=== PATIENT | male | born 1975 | race African-American/Black ===

== ENCOUNTER 2019-12-29 09:18 | Emergency (ER) | payer OTHER ==
[~2019-12-29] VITALS: Ht 177.8 cm; Wt 95.3 kg
[2019-12-29 09:43] LABS: ABSOLUTE NEUTROPHILS 10.2 thou/uL (1.4-8.2); BASOPHILS 0.4 % (0.0-2.0); EOSINOPHILS 0.1 % (0.0-3.0); HEMATOCRIT 44.3 % (42.0-52.0); HEMOGLOBIN 14.8 gm/dL (14.0-18.0); LYMPHOCYTES 9.6 % (24.0-44.0); MCH 28.8 pg (26.0-34.0); MCHC 33.5 g/dL (28.0-37.0); MCV 85.9 fL (80.0-100.0); MONOCYTES 4.8 % (1.0-8.0); POLYS 85.1 % (36.0-66.0); RBC 5.16 mil/uL (4.50-6.00); RDW 13.1 % (10.5-14.5); WBC 13.2 thou/uL (4.0-11.0)
[2019-12-29 09:50] LABS: ANION GAP 15 mmol/L (7-16); BUN 16 mg/dL (7-18); CALCIUM 10.3 mg/dL (8.5-10.1); CHLORIDE 91 mmol/L (98-107); CO2 24 mmol/L (21-32); CREATININE 1.5 mg/dL (0.7-1.3); GLUCOSE 320 mg/dL (74-106); POTASSIUM 3.7 mmol/L (3.5-5.1); SODIUM 130 mmol/L (136-145)
[2019-12-29 10:00] LABS: PLATELET COUNT 221 thou/uL (150-400); PLATELET ESTIMATE NORMAL
[2019-12-29 10:01] LABS: ALBUMIN 4.2 g/dL (3.4-5.0); LIPASE 141 U/L (73-393); SGOT 26 U/L (15-37); SGPT 16 U/L (30-65); TOTAL BILIRUBIN 1.1 mg/dL (<0.1-1.0); TOTAL PROTEIN 8.7 g/dL (6.4-8.2); TROPONIN-I <0.06 ng/mL (<0.06)
[2019-12-29 10:27] LABS: URINE BILIRUBIN NEGATIVE (Negative); URINE BLOOD TRACE (Negative); URINE CLARITY CLEAR; URINE COLOR YELLOW; URINE GLUCOSE-RANDOM* 2+ (Negative); URINE KETONES 3+ (Negative); URINE LEUKOCYTES-REFLEX NEGATIVE (Negative); URINE NITRITE-REFLEX NEGATIVE (Negative); URINE PROTEIN (DIPSTICK) TRACE (Negative)
--- NOTE | 2019-12-29 12:55 | EKG ---
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1975 Requested By: Bernardino Rojas Order Number: [id number] MD: Triston Mccauley Measurements Intervals [place] Rate: 114 P: 70 NM: 157 QRS: 47 QRSD: 91 T: 45 QT: 347 QTc: 478 Interpretive Statements Sinus tachycardia ST elev, probable normal early repol pattern Borderline prolonged QT interval No previous ECG available for comparison Electronically Signed On 12-29-2019 12:53:58 CORD TIRE [employer]ILDER by Triston Mccauley [email or web address] <ELECTRONICALLY SIGNED> By: Triston Mccauley MD 12/29/19 1253 0937 0937 Triston Mccauley MD /EPI
[2019-12-29] MEDS ORDERED: CATAPRES0.1 MG PO (13:34)
[2019-12-29] MEDS ORDERED: INSULIN SYRING1 EA11 SUBQ (13:34)
[2019-12-29] MEDS ORDERED: ONDANSETRON ODT8 MG PO (13:34)
[2019-12-29] MEDS ORDERED: TRAMADOL 50 MG50 MG PO (13:34)
[2019-12-29 13:45] VITALS: BP 151/92
[2019-12-30] MEDS ORDERED: REGLAN 10 MG TA10 MG PO (18:14)
== END 2019-12-29 13:45 | disposition home or self-care (01) ==
LOC: ER 09:18 → EDBD 09:18 → ER 13:45
PROVIDERS: Emergency Medicine
DX: K31.84 Gastroparesis (principal); I10 Essential (primary) hypertension; I11.9 Hypertensive heart disease without heart failure; R10.9 Unspecified abdominal pain; R03.0 Elevated blood-pressure reading, without diagnosis of hypertension; F17.210 Nicotine dependence, cigarettes, uncomplicated

== ENCOUNTER 2019-12-30 12:08 | Emergency (ER) | payer OTHER ==
[~2019-12-30] VITALS: Ht 182.9 cm; Wt 88.5 kg
[~2019-12-30 12:08] MED LIST: CATAPRES0.1 MG PO; INSULIN SYRING1 EA11 SUBQ; ONDANSETRON ODT8 MG PO; TRAMADOL 50 MG50 MG PO
[2019-12-30 12:27] LABS: ABSOLUTE NEUTROPHILS 8.3 thou/uL (1.4-8.2); BASOPHILS 0.3 % (0.0-2.0); HEMATOCRIT 47.6 % (42.0-52.0); HEMOGLOBIN 16.2 gm/dL (14.0-18.0); LYMPHOCYTES 17.8 % (24.0-44.0); MCH 29.2 pg (26.0-34.0); MCHC 34.1 g/dL (28.0-37.0); MCV 85.7 fL (80.0-100.0); MONOCYTES 5.1 % (1.0-8.0); POLYS 76.8 % (36.0-66.0); RBC 5.55 mil/uL (4.50-6.00); RDW 13.3 % (10.5-14.5); WBC 10.8 thou/uL (4.0-11.0)
[2019-12-30 12:28] LABS: PLATELET COUNT 302 thou/uL (150-400)
[2019-12-30 12:34] LABS: CALCIUM 10.5 mg/dL (8.5-10.1); CREATININE 1.5 mg/dL (0.7-1.3); POTASSIUM 3.7 mmol/L (3.5-5.1)
[2019-12-30 12:40] LABS: ALBUMIN 4.3 g/dL (3.4-5.0); TOTAL BILIRUBIN 1.1 mg/dL (<0.1-1.0); TOTAL PROTEIN 9.2 g/dL (6.4-8.2)
[2019-12-30 12:44] LABS: BE(vivo) 4.3 mmol/L (-2 to +3); HCO3 22.7 mmol/L (22.0-26.0); PCO2 VENOUS 21.2 mmHg (41.0-51.0); PO2 VENOUS 69.7 mmHg (35.0-45.0)
[2019-12-30] MEDS ORDERED: REGLAN 10 MG TA10 MG PO (18:14)
[2019-12-30 19:57] LABS: URINE BILIRUBIN NEGATIVE (Negative); URINE BLOOD NEGATIVE (Negative); URINE CLARITY CLEAR; URINE COLOR YELLOW; URINE GLUCOSE-RANDOM* 2+ (Negative); URINE KETONES 1+ (Negative); URINE LEUKOCYTES-REFLEX NEGATIVE (Negative); URINE NITRITE-REFLEX NEGATIVE (Negative); URINE PROTEIN (DIPSTICK) 1+ (Negative)
[2019-12-30 20:05] LABS: AMORPHOUS PHOSPHATES Moderate /LPF (None Seen); AMP/METHAMP Negative (Negative); BARBITURATES Negative (Negative); BENZODIAZEPINES Negative (Negative); COCAINE POSITIVE (Negative); METHADONE Negative (Negative); OPIATES Negative (Negative); PCP Negative (Negative); URINE RBC None Seen /HPF (0-2)
[2019-12-30 20:06] LABS: BACTERIA-REFLEX 1-9 Few /HPF (None Seen); CASTS None Seen /LPF (None Seen); SQUAMOUS 0-3 Few /LPF (0-3); URINE WBC-REFLEX None Seen /HPF (0-5)
[2019-12-30 21:21] VITALS: BP 175/83
[2019-12-31 06:06] LABS: HBsAG-EMPLOYEE EXPOSURE Negative (Negative); HCV AB-EMPLOYEE EXPOSURE <0.1 (0.0-0.9)
--- NOTE | 2020-01-04 15:34 | EKG ---
[facility] [place] [address] ELECTROCARDIOGRAM REPORT Name: TERENCE PACHECO Room #: DEP [facility]#: [id number] Admission: 12/30/19 Attend Phys: Discharge: 12/30/19 Date of : 73 Report #: [id number] THIS REPORT FOR: cc: FAM - Family physician unknown FAM - Family physician unknown Omar Navarrete MD [facility] THIS REPORT FOR: //name// [facility] ED Test Date: 2019-12-30 Test Time: 12:25:29 Pat Name: TERENCE PACHECO Department: Room: Gender: Client Hr Manager: : 1975 Requested By: Ubaldo Medina Order Number: [id number] MD: Omar Navarrete Measurements Intervals [place] Rate: 106 P: 58 TN: 152 QRS: 42 QRSD: 92 T: 34 QT: 353 QTc: 469 Interpretive Statements Sinus tachycardia Poor R wave progression Compared to ECG 12/29/2019 09:37:43 No significant change was found Electronically Signed On 12-31-2019 16:57:10 EDGE GLUER by Omar Navarrete [email or web address] <ELECTRONICALLY SIGNED> By: Omar Navarrete MD, FAC 12/31/19 1657 1225 1225 Omar Navarrete MD, [facility] /EPI
== END 2019-12-30 21:25 | disposition home or self-care (01) ==
LOC: ER 12:08
PROVIDERS: Emergency Medicine
DX: R11.15 Cyclical vomiting syndrome unrelated to migraine (principal); R11.2 Nausea with vomiting, unspecified; I10 Essential (primary) hypertension; E11.9 Type 2 diabetes mellitus without complications; J45.909 Unspecified asthma, uncomplicated; F17.210 Nicotine dependence, cigarettes, uncomplicated; Z79.899 Other long term (current) drug therapy

== ENCOUNTER 2020-03-09 12:46 | Emergency (ER) | payer OTHER ==
[~2020-03-09] VITALS: Ht 177.8 cm; Wt 95.3 kg
[~2020-03-09 12:46] MED LIST changes: +REGLAN 10 MG TA10 MG PO
[2020-03-09] MEDS ORDERED: ZESTRIL10 MG PO (13:24)
[2020-03-09] MEDS ORDERED: REGLAN 10 MG TA10 MG PO (13:25)
[2020-03-09 13:45] LABS: BASOPHILS 0.7 % (0.0-2.0); EOSINOPHILS 0.1 % (0.0-3.0); HEMOGLOBIN 14.3 gm/dL (14.0-18.0); LYMPHOCYTES 18.5 % (24.0-44.0); MCHC 34.1 g/dL (28.0-37.0); MCV 85.1 fL (80.0-100.0); MONOCYTES 8.5 % (1.0-8.0); PLATELET COUNT 252 thou/uL (150-400); POLYS 72.2 % (36.0-66.0); RBC 4.94 mil/uL (4.50-6.00); RDW 12.8 % (10.5-14.5); WBC 8.4 thou/uL (4.0-11.0)
[2020-03-09 13:50] LABS: CREATININE 1.2 mg/dL (0.7-1.3); POTASSIUM 3.4 mmol/L (3.5-5.1)
[2020-03-09 13:56] LABS: ALBUMIN 3.7 g/dL (3.4-5.0); TOTAL BILIRUBIN 1.1 mg/dL (<0.1-1.0); TOTAL PROTEIN 7.9 g/dL (6.4-8.2)
[2020-03-09 14:00] LABS: URINE BILIRUBIN NEGATIVE (Negative); URINE BLOOD TRACE (Negative); URINE CLARITY CLEAR; URINE COLOR YELLOW; URINE GLUCOSE-RANDOM* 2+ (Negative); URINE KETONES 1+ (Negative); URINE LEUKOCYTES-REFLEX NEGATIVE (Negative); URINE NITRITE-REFLEX NEGATIVE (Negative); URINE PROTEIN (DIPSTICK) TRACE (Negative); URINE SPECIFIC GRAVITY 1.015 (1.005-1.035)
[2020-03-09 16:10] VITALS: BP 162/101
== END 2020-03-09 16:31 | disposition left against medical advice (07) ==
LOC: ER 12:46
PROVIDERS: Physician Assistant
DX: E11.43 Type 2 diabetes mellitus with diabetic autonomic (poly)neuropathy (principal); K31.84 Gastroparesis; E11.65 Type 2 diabetes mellitus with hyperglycemia; R11.2 Nausea with vomiting, unspecified; I10 Essential (primary) hypertension; J45.909 Unspecified asthma, uncomplicated; F17.210 Nicotine dependence, cigarettes, uncomplicated; Z79.899 Other long term (current) drug therapy

== ENCOUNTER 2020-04-23 21:39 | Emergency (ER) | payer OTHER ==
[~2020-04-23] VITALS: Ht 175.3 cm; Wt 90.7 kg
[~2020-04-23 21:39] MED LIST changes: +ZESTRIL10 MG PO
[2020-04-23] MEDS ORDERED: AMLODIPINE BESY10 MG PO (21:48)
[2020-04-23] MEDS ORDERED: NEURONTIN 300M300 M2 PO (21:49)
[2020-04-23] MEDS ORDERED: LISINOPRIL20 MG PO (21:49)
[2020-04-23] MEDS ORDERED: LANTUS SOL100 UNIT/1 SUBQ (21:49)
[2020-04-23] MEDS ORDERED: HUMALOG KW100 UNIT/1 SUBQ (21:49)
[2020-04-23 22:19] LABS: ABSOLUTE NEUTROPHILS 9.6 thou/uL (1.4-8.2); BASOPHILS 0.3 % (0.0-2.0); HEMATOCRIT 43.3 % (42.0-52.0); HEMOGLOBIN 15.2 gm/dL (14.0-18.0); LYMPHOCYTES 5.9 % (24.0-44.0); MCH 29.6 pg (26.0-34.0); MCV 84.6 fL (80.0-100.0); MONOCYTES 2.2 % (1.0-8.0); PLATELET COUNT 258 thou/uL (150-400); POLYS 91.6 % (36.0-66.0); RBC 5.12 mil/uL (4.50-6.00); RDW 12.5 % (10.5-14.5); WBC 10.5 thou/uL (4.0-11.0)
[2020-04-23 22:31] LABS: ANION GAP 13 mmol/L (7-16); BUN 13 mg/dL (7-18); CALCIUM 9.6 mg/dL (8.5-10.1); CHLORIDE 92 mmol/L (98-107); CO2 25 mmol/L (21-32); CREATININE 1.2 mg/dL (0.7-1.3); GLUCOSE 338 mg/dL (74-106); SODIUM 130 mmol/L (136-145)
[2020-04-23 22:41] LABS: ALBUMIN 3.9 g/dL (3.4-5.0); LIPASE 201 U/L (73-393); SGOT 17 U/L (15-37); SGPT 27 U/L (30-65); TOTAL BILIRUBIN 0.9 mg/dL (0.2-1.0); TOTAL PROTEIN 8.3 g/dL (6.4-8.2); TROPONIN-I <0.06 ng/mL (<0.06)
[2020-04-23] MEDS ORDERED: PHENERGAN 25 MG25 MG PO (23:19)
[2020-04-23] MEDS ORDERED: PRILOSEC OTC20 MG PO (23:19)
[2020-04-23] MEDS ORDERED: TRAMADOL 50 MG50 MG PO (23:19)
[2020-04-23 23:33] VITALS: BP 157/90
--- NOTE | 2020-04-24 07:43 | EKG ---
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: : 1975 Requested By: Bernardino Rojas Order Number: [id number] MD: Omar Navarrete Measurements Intervals [place] Rate: 99 P: 49 [place]: 158 QRS: 33 QRSD: 89 T: 25 QT: 359 QTc: 461 Interpretive Statements Sinus rhythm Small inferior Q waves Poor R wave progression Compared to ECG 12/30/2019 12:25:29 No significant change was found Electronically Signed On 04-24-2020 7:42:46 CDT by Omar Navarrete [email or web address] <ELECTRONICALLY SIGNED> By: Omar Navarrete MD, FACC 04/24/20 0742 19 19 Omar Navarrete MD, [facility] /EPI
== END 2020-04-23 23:40 | disposition home or self-care (01) ==
LOC: ER 21:39
PROVIDERS: Emergency Medicine
DX: E11.43 Type 2 diabetes mellitus with diabetic autonomic (poly)neuropathy (principal); E11.65 Type 2 diabetes mellitus with hyperglycemia; K31.84 Gastroparesis; R11.2 Nausea with vomiting, unspecified; I10 Essential (primary) hypertension; J45.909 Unspecified asthma, uncomplicated; F17.210 Nicotine dependence, cigarettes, uncomplicated; Z79.4 Long term (current) use of insulin; Z79.899 Other long term (current) drug therapy

== ENCOUNTER 2020-08-25 17:05 | Emergency (ER) | payer OTHER ==
[~2020-08-25] VITALS: Ht 177.8 cm; Wt 95.3 kg
[~2020-08-25 17:05] MED LIST changes: +AMLODIPINE BESY10 MG PO; +HUMALOG KW100 UNIT/1 SUBQ; +LANTUS SOL100 UNIT/1 SUBQ; +LISINOPRIL20 MG PO; +NEURONTIN 300M300 M2 PO; +PHENERGAN 25 MG25 MG PO; +PRILOSEC OTC20 MG PO
[2020-08-25 18:07] LABS: HEMATOCRIT 46.6 % (42.0-52.0); HEMOGLOBIN 15.8 gm/dL (14.0-18.0); MCH 28.4 pg (26.0-34.0); MCHC 33.9 g/dL (28.0-37.0); MCV 83.6 fL (80.0-100.0); RBC 5.58 mil/uL (4.50-6.00); RDW 12.5 % (10.5-14.5); WBC 8.2 thou/uL (4.0-11.0)
[2020-08-25 18:12] LABS: ANION GAP 17 mmol/L (7-16); BUN 12 mg/dL (7-18); CALCIUM 9.8 mg/dL (8.5-10.1); CHLORIDE 94 mmol/L (98-107); CO2 21 mmol/L (21-32); CREATININE 1.4 mg/dL (0.7-1.3); GLUCOSE 348 mg/dL (74-106); POTASSIUM 3.5 mmol/L (3.5-5.1); SODIUM 132 mmol/L (136-145)
[2020-08-25 18:20] LABS: URINE BILIRUBIN NEGATIVE (Negative); URINE BLOOD TRACE (Negative); URINE CLARITY CLEAR; URINE COLOR YELLOW; URINE GLUCOSE-RANDOM* 3+ (Negative); URINE KETONES 2+ (Negative); URINE LEUKOCYTES-REFLEX NEGATIVE (Negative); URINE NITRITE-REFLEX NEGATIVE (Negative); URINE PROTEIN (DIPSTICK) 1+ (Negative)
[2020-08-25 18:21] LABS: MAGNESIUM 1.8 mg/dL (1.8-2.4); TROPONIN-I <0.06 ng/mL (<0.06)
[2020-08-25 18:35] LABS: SQUAMOUS None Seen /LPF (0-3)
[2020-08-25 18:36] LABS: BACTERIA-REFLEX >30 Many /HPF (None Seen); CASTS None Seen /LPF (None Seen); URINE RBC 3-10 Few /HPF (0-2); URINE WBC-REFLEX 6-15 Few /HPF (0-5)
[2020-08-25 18:37] LABS: AMORPHOUS PHOSPHATES Few /LPF (None Seen)
[2020-08-25 19:11] LABS: BE(vivo) -0.1 mmol/L (-2 to +3); HCO3 22.7 mmol/L (22.0-26.0); PCO2 VENOUS 31.9 mmHg (41.0-51.0); PO2 VENOUS 139.1 mmHg (35.0-45.0)
[2020-08-25 19:11] LABS: ALBUMIN 4.1 g/dL (3.4-5.0); DIRECT BILIRUBIN 0.2 mg/dL (<0.1-0.2); TOTAL BILIRUBIN 1.1 mg/dL (0.2-1.0); TOTAL PROTEIN 8.7 g/dL (6.4-8.2)
[2020-08-25 19:52] VITALS: BP 182/74
--- NOTE | 2020-08-26 08:01 | EKG ---
[facility] [place] [address] ELECTROCARDIOGRAM REPORT Name: PACHECOTERENCE BURRELL [facility] [id number] Admission: 08/25/20 Attend Phys: Discharge: 08/25/20 Date of : 73 Report #: [id number] THIS REPORT FOR: cc: JAVI Navarro family physician/PCP JAVI - Melanie family physician/PCP Mayo Woo MD [facility] THIS REPORT FOR: //name// [facility] ED Test Date: 2020-08-25 Test Time: 18:58:32 Pat Name: TERENCE PACHECO Department: Room: Gender: Primer Supervisor: Latasha : 1975 Requested By: Tony Bajwa Order Number: [id number] MD: Maoy Woo Measurements Intervals [place] Rate: 93 P: 50 IN: 156 QRS: 24 QRSD: 90 T: 27 QT: 363 QTc: 452 Interpretive Statements Sinus rhythm Inferior infarct, old Compared to ECG 04/23/2020 22:20:58 Myocardial infarct finding now present Inferior Q waves no longer present Q waves no longer present Poor R-wave progression no longer present Electronically Signed On 08-26-2020 8:00:49 CDT by Mayo Woo [email or web address] <ELECTRONICALLY SIGNED> By: Mayo Woo MD, FACC 08/26/20799 57 57 Mayo Woo MD, FACC /EPI
== END 2020-08-25 19:52 | disposition home or self-care (01) ==
LOC: ER 17:05
PROVIDERS: Emergency Medicine
DX: R11.2 Nausea with vomiting, unspecified (principal); F17.210 Nicotine dependence, cigarettes, uncomplicated; I10 Essential (primary) hypertension; E11.9 Type 2 diabetes mellitus without complications; J45.909 Unspecified asthma, uncomplicated; Z79.4 Long term (current) use of insulin